=== PATIENT | female | born 1995 | race Caucasian/White ===

== ENCOUNTER 2017-10-26 11:23 | Emergency (ER) | payer MEDICAID ==
[~2017-10-26] VITALS: Ht 157.5 cm; Wt 90.0 kg
[~2017-10-26 11:23] MED LIST: PRED10TA PO
[2017-10-26 11:40] VITALS: BP 111/58
== END 2017-10-26 14:02 | disposition home or self-care (01) ==
LOC: ER 11:24
DX: O99.321 Drug use complicating pregnancy, first trimester (principal); F15.90 Other stimulant use, unspecified, uncomplicated; Z3A.17 17 weeks gestation of pregnancy; Z79.899 Other long term (current) drug therapy
CPT/HCPCS: 99281

== ENCOUNTER 2023-10-06 20:42 | Emergency (ER) | payer MEDICAID ==
[~2023-10-06] VITALS: Ht 157.5 cm; Wt 90.9 kg
[2023-10-06 21:14] LABS: BASOPHILS # (AUTO) 0.1 X10'3 (0-0.2); BASOPHILS % (AUTO) 0.8 % (0-1); HEMATOCRIT 41.1 % (35.0-45.0); LYMPHOCYTES # (AUTO) 3.9 X10'3 (1.1-4.8); MEAN CORPUSCULAR HEMOGLOBIN 27.9 PG (27.0-31.0); MEAN CORPUSCULAR HGB CONC 33.2 g/dL (33.0-36.5); MEAN CORPUSCULAR VOLUME 83.9 FL (78-98); NEUTROPHILS # (AUTO) 5.5 X10'3 (1.8-7.7); PLATELET COUNT 386 X10'3 (140-440)
[2023-10-06 21:16] LABS: EOSINOPHILS # (AUTO) 0.2 X10'3 (0-0.9); EOSINOPHILS % (AUTO) 1.6 % (0-6); HEMOGLOBIN 13.7 g/dl (12.0-16.0); LYMPHOCYTES % (AUTO) 36.7 % (21-51); MEAN PLATELET VOLUME 7.9 FL (7.4-10.4); MONOCYTES % (AUTO) 9.2 % (2-12); NEUTROPHILS % (AUTO) 51.7 % (42-75); WHITE BLOOD COUNT 10.7 X10'3 (4.5-11.0)
[2023-10-06 22:47] LABS: ALANINE AMINOTRANSFERASE 699 U/L (12-78); ALKALINE PHOSPHATASE 547 IU/L (46-116); ANION GAP 8 (8-16); ASPARTATE AMINO TRANSFERASE 422 U/L (10-37); BILIRUBIN,TOTAL 1.2 MG/DL (0.1-1.0); BLOOD UREA NITROGEN 12 MG/DL (7-18); BUN/CREATININE RATIO 16.4 (10.0-20.0); CALCIUM 9.1 MG/DL (8.5-10.1); CHLORIDE 101 MMOL/L (99-107); CREATININE 0.73 MG/DL (0.40-0.90); GLUCOSE 96 MG/DL (70-104); LIPASE 48 U/L (16-77); POTASSIUM 3.6 MMOL/L (3.5-5.1); SODIUM 136 MMOL/L (135-145); TOTAL CARBON DIOXIDE 27.1 MMOL/L (24-32); TOTAL PROTEIN 8.2 G/DL (6.4-8.2); eCRCL 92 ML/MIN; eGFR > 90 ML/MIN
[2023-10-06] MEDS: morphine 4 MG/ML inj SYRINge IV ONE (22:56)
[2023-10-06] MEDS: ondansetron/PF 4mg/2ml inj IV ONE (22:56)
[2023-10-06] MEDS ORDERED: ketorolac trometh. 30mg/ml inj. IV ONE (23:05)
[2023-10-06] MEDS: normal saline 1000ml 1,000 ML IV ONE (23:10)
[2023-10-06] MEDS: bisacodyl 5mg tablet.DR PO ONE (23:23)
[2023-10-06] MEDS: dicyclomine 10 MG capsule PO ONE (23:23)
[2023-10-06] MEDS: ketorolac tromethamine 15mg/ml inj. IV ONE (23:24)
[2023-10-06] MEDS ORDERED: POLY119P2 PO (23:27)
[2023-10-06] MEDS ORDERED: ONDA8TAB13 PO (23:27)
[2023-10-06] MEDS ORDERED: BISA-78 PO (23:27)
[2023-10-06] MEDS ORDERED: HYDR-3965 PO (23:27)
[2023-10-06 23:59] VITALS: BP 102/67; PULSE 62; RESP 14; TEMP 98.1; O2SAT 100
== END 2023-10-07 00:01 | disposition home or self-care (01) ==
LOC: ER 20:43
DX: K59.00 Constipation, unspecified (principal); F41.9 Anxiety disorder, unspecified; F32.A Depression, unspecified; F12.90 Cannabis use, unspecified, uncomplicated; R11.2 Nausea with vomiting, unspecified; Z90.49 Acquired absence of other specified parts of digestive tract; Z79.899 Other long term (current) drug therapy
CPT/HCPCS: 74018; 80053; 83690; 85025; 96361; 96374; 96375; 99284; J1885; J2270; J2405; J7030